=== PATIENT | female | born 1970 | race Caucasian/White ===

== ENCOUNTER → 2018-12-18 16:31 | Outpatient (CLI) | payer OTHER, SELFPAY ==
[2018-12-18 18:57] LABS: Cancer Antigen 125 < 6 U/mL (0-35)
[2018-12-24 17:11] LABS: Human HE4 Antigen 38 pmol/L
== END ==
PROVIDERS: PCP Family Medicine; Visit Provider Obstetrics & Gynecology
DX: N83.9 Noninflammatory disorder of ovary, fallopian tube and broad ligament, unspecified (principal)
CPT/HCPCS: 36415; 86304; 86305